=== PATIENT | male | born 1960 | race Caucasian/White ===

== ENCOUNTER 2024-02-19 02:48 | Emergency (ER) | payer OTHER, SELFPAY ==
[2024-02-19 02:57] VITALS: BP 115/74
[2024-02-19 03:25] LABS: % Basophils 0.5 % (0-2); % Eosinophils 1.8 % (0-6); % Immature Granulocytes 0.2 % (0-0.5); % Lymphocytes 24.9 % (20.5-51.1); % Monocytes 6.6 % (1.7-9.3); Absolute Eosinophils 0.1 10^3/uL (0-0.7); Absolute Lymphocytes 1.5 10^3/uL (1.2-3.4); Absolute Monocytes 0.4 10^3/uL (0.1-0.6); Hematocrit 40.7 % (39.0-52.0); Hemoglobin 13.7 g/dL (13.0-18.0); Mean Corp Hgb Conc. 33.7 g/dL (33.0-37.0); Mean Corpuscular Hgb 31.6 pg (27.0-31.0); Mean Platelet Volume 10.2 fL (7.4-10.4); Nucleated Red Blood Cells % 0 % (-); Platelet Count 148 10^3/uL (130-400); Red Blood Cell Count 4.33 10^6/uL (4.70-6.10); Red Cell Dist. Width 12.8 % (11.5-14.5); White Blood Cell Count 6.1 10^3/uL (4.8-10.8)
[2024-02-19 03:48] LABS: ALT (SGPT) 28 U/L (0-50); AST (SGOT) 30 U/L (17-59); Albumin 3.8 g/dl (3.5-5.0); Alkaline Phosphatase 86 U/L (38-126); Blood Urea Nitrogen 21 mg/dl (9-20); Calcium 9.2 mg/dl (8.4-10.2); Carbon Dioxide 28 mmol/L (22-30); Chloride 104 mmol/L (98-107); Glucose 99 mg/dl (70-99); Potassium 4.2 mmol/L (3.5-5.1); Sodium 136 mmol/L (135-145); Total Bilirubin 0.5 mg/dl (0.2-1.3); Total Protein 5.9 g/dl (6.3-8.2); eGFR > 60.00
[2024-02-19 03:49] LABS: Troponin I < 0.012 ng/ml
[2024-02-19 07:37] VITALS: BMI 21.4
[2024-02-19 07:41] VITALS: BP 92/78
[2024-02-19 08:01] VITALS: BP 113/96
--- NOTE | 2024-02-19 08:05 | ED.GENMED ---
History of Present Illness
General
Chief Complaint: Chest Pain
Time Seen by Provider: 02/19/24 07:39
Travel History
Have you had any contact with someone who has COVID-19?: No
Do you have any symptoms of coronavirus? Fever > 100 degrees, chills, cough, shortness of breath, sore throat, loss of taste or smell, muscle aches, or headache?: No
History of Present Illness
History of Present Illness:
63-year-old male with history of alcohol abuse in remission and pancreatic cancer presents to the emergency department for evaluation of chest pain, states he has been having mild chest discomfort for the past 2 to 3 days that radiates to the left
arm, abruptly in the middle of the night it woke him from sleep, severely worse. The pain has not subsided. Denies any fevers or chills. Reports fatigue and general body aches however. No coughing or shortness of breath.
Past History
Past History
ED Past Medical History: Cancer (Pancreatic) and Other (Osteomyelitis)
ED Past Surgical History: Orthopedic and Other (Duodenal pancreatic surgery)
Social History
Tobacco: Vaping
Alcohol: None
Drug: None
Personal: Single
Living: alone
Employment: Employed
Family History
Family History: Other (Noncontributory)
Review of Systems
Review of Systems
Allergies reviewed?: Yes
All Other Systems: ROS reviewed and negative except as documented in HPI and ROS
Phy Exam
Physical Exam
Physical Exam:
GEN: Well appearing, NAD, WDWN
Eyes: PERRLA, EOMs intact, no scleral icterus
HENT: NCAT, oral mucosa moist
Lungs: CTAB, no wheezes, rales, rhonchi, normal chest wall excursion
Cardiac: RRR, no M/R/G, no peripheral edema. Radial pulses 2+ bilat
Abdomen: S, NT, ND, NABS, no masses or hepatosplenomegaly
Neuro: AO x 3
MSK: No gross deformity or ecchymosis. No edema. No digital clubbing
Skin: No rashes, petechiae. Normal color, no pallor or jaundice.
Psych: Calm, cooperative, proper hygiene
Scores
Heart Score for Chest Pain Patients
STEMI patient?: No
History: Slightly or Non-Suspicious
ECG: Normal
Age: >45 - <65 years
Risk Factors: 1 or 2 Risk Factors
Troponin: </= Normal Limit
Heart Score for Chest Pain Patients: 2
Heart Score Risk: 2.5% MACE over next 6 weeks
Course
Orders/Labs/Results
Orders:
Orders
02/19/24 03:00
Electrocardiogram (*1) Urgent
Reason for Study: Chest Pain
EKG- Treatment ONCE
02/19/24 03:19
CMP [Comprehensive Metabolic Panel] Urgent
Complete Blood Count/With Diff Urgent
Troponin I Urgent
02/19/24 08:08
Sucralfate Suspension [Carafate Suspension] 1 gm PO NOW STA
CR Chest - 2 Views Urgent
Comment:
Reason For Exam: chest pain
Abnormal Lab Results
02/19/24
03:19
RBC 4.33 L 10^6/uL
(4.70-6.10)
MCH 31.6 H pg
(27.0-31.0)
BUN 21 H mg/dl
(9-20)
Total Protein 5.9 L g/dl
(6.3-8.2)
02/19/24 03:19
02/19/24 03:19
Vital Signs
Initial and Last Documented VS:
Initial Vital Signs
Temp Pulse Resp BP Pulse Ox
97.6 F 98 22 115/74 100
02/19/24 02:57 02/19/24 02:57 02/19/24 02:57 02/19/24 02:57 02/19/24 02:57
Last Documented Vital Signs
Temp Pulse Resp BP Pulse Ox
97.5 F 66 14 110/57 100
02/19/24 09:08 02/19/24 08:45 02/19/24 08:45 02/19/24 08:35 02/19/24 08:45
MDM/Problems Addressed
MDM/Problems Addressed:
Patient's initial workup is reassuring, EKG is nonischemic and troponin is negative. Pain resolved after Carafate administration. Likely breakthrough GERD, more recommend increased dose of PPI and will add Carafate before meals. No clinical signs
of infectious etiology. Pain is not exertional thus do not suspect ACS
Comment
Comment:
EKG independently interpreted by me shows normal sinus rhythm with a first-degree AV block, no ST changes concerning for ischemia, QTc of 445
*Critical Care Note
Total Time (30-74mins, 75-104mins- exclusive of procedures): Not Applicable
ED Attending Note
-
Portions of this chart may have been created with voice recognition software.� Occasional wrong word or��sound alike� substitutions may have occurred due to the inherent limitations of voice recognition software.
Discharge Plan
Departure
Patient Disposition: Home (Routine Discharge)
Date of Disposition: 02/19/24
Time of Disposition: 08:54
Patient with high blood pressure during this ER visit?: No
Discharge Problem:
Chest pain due to GERD
Instructions: Acid Reflux and GERD in Adults (DC)
Prescriptions:
New
sucralfate [Carafate] 1 gram tablet
1 g PO AC Qty: 90 0RF
Rx Instructions:
Dissolve tablet in 10mL clear liquid before consumption
No Action
ondansetron 4 MG tablet,disintegrating
4 mg PO TIDPRN PRN (Reason: nausea/vomiting) Qty: 10 0RF
omeprazole magnesium [Prilosec OTC] 20 MG tablet,delayed release (DR/EC)
20 mg PO DAILY Qty: 20 0RF
venlafaxine [Effexor XR] 75 mg Capsule,Extended Release 24hr
75 mg PO DAILY
azithromycin [Zithromax] 250 mg tablet
250 mg PO DAILY 4 Days Qty: 4 0RF
methylprednisolone [Medrol (Kai)] 4 mg tablets,dose pack
See Rx Instructions .ROUTE .COMPLEX Qty: 21 0RF
Rx Instructions:
orally per package directions
epinephrine [EpiPen] 0.3 mg/0.3 mL auto-injector
0.3 mg IM .STAT PRN (Reason: anaphylaxis) Qty: 1 2RF
diphenhydramine HCl [Benadryl] 25 mg capsule
25 mg PO Q8H PRN (Reason: itching) Qty: 20 0RF
Referrals:
Vee Castro DO [Family Provider] -
Activity Restrictions/Additional Instructions:
Increase your omeprazole to 40mg twice daily for 14 days, then resume once daily dosing
if pain worsens, return to the ER
Interventions
Interventions:
*Risk Screen - Suicide Last Done: 02/19/24 02:57
*General Assessment Last Done: 02/19/24 07:37
*Neglect/Abuse Screening Last Done: 02/19/24 02:57
ED- Fall Risk Assessment Last Done: 02/19/24 07:37
*ED COVID-19 Vaccine History Last Done: 02/19/24 07:37
*Nursing Disposition Last Done: 02/19/24 09:08
ED- Cardiac Assessment Last Done: 02/19/24 07:47
Discharge Date and Time
Discharge Date/Time: 02/19/24 09:11
Print Language: GREENLANDIC
[2024-02-19] MEDS: CARAFATE SUSPENSION 1 GM PO (08:33)
[2024-02-19 08:35] VITALS: BP 110/57
== END 2024-02-19 09:11 | disposition home or self-care (01) ==
LOC: EMR 02:48
PROVIDERS: Emergency Medicine; EMERGENCY PHYSICIAN Emergency Medicine; FAMILY PHYSICIAN Internal Medicine
DX: R07.89 Other chest pain (principal); K21.9 Gastro-esophageal reflux disease without esophagitis; F17.290 Nicotine dependence, other tobacco product, uncomplicated
CPT/HCPCS: 99285; 71046; 80053; 84484; 85025; 93005